=== PATIENT | female | born 1990 | race Caucasian/White ===

== ENCOUNTER 2025-02-28 09:23 | Inpatient (IN) | payer MEDICAID, SELFPAY ==
[2025-02-28] VITALS (50 sets, daily range): BP systolic 113–194; BP diastolic 64–94; PULSE 73–109; RESP 14–22; TEMP 36.3–37.1; O2SAT 94–100; BMI 34.8
[2025-02-28] MEDS: Lactated Ringers 1,000 ML 50 ML IV (09:15)
[2025-02-28] MEDS: Magnesium Sulfate 4gm/100mL 4 GM/100 ML IV.SOLN. IV (09:35)
[2025-02-28] MEDS: Acetaminophen 500 MG Tablet 1000 MG PO ×3 (09:56→22:02)
[2025-02-28 09:57] LABS: Absolute Lymphocyte Count 1.02 X10^3/uL (0.83-4.51); Absolute Neutrophil Count 10.1 X10^3/uL (2.0-7.7); Basophil# 0.02 X10^3/uL; Basophil% 0.2 % (0-1); Eosinophil# 0.01 X10^3/uL; Eosinophils% 0.1 % (0-5); Hematocrit 36.6 % (37-47); Hemoglobin 11.8 g/dL (12.0-15.0); Lymphocyte # 1.02 X10^3/ul (0.83-4.51); Lymphocyte % 8.5 % (19-41); Mean Corp Hgb Conc 32.2 g/dL (32-36); Mean Corpuscular Hgb 24.7 pg (27.0-32.0); Mean Corpuscular Volume 76.7 fL (81-99); Monocyte# 0.76 X10^3/uL; Monocyte% 6.3 % (0-10); NRBC Flagged by Analyzer 0 % (0-5); Neutrophil # 10.13 X10^3/uL (2.7-7.7); Neutrophil % 84.2 % (47-70); Platelet Count 192 K/mm3 (150-450); RBC Distribution Width SD 38.9 fl (35.1-43.9); Red Blood Count 4.77 M/mm3 (4.2-5.4)
[2025-02-28] MEDS: Magnesium Sulfate 20 GM/500 ML BAG IV ×2 (09:57→18:56)
[2025-02-28 10:27] LABS: AST(SGOT) 103 U/L (<=31); Uric Acid 5.9 mg/dL (2.6-6.0)
[2025-02-28 10:34] LABS: Alanine Aminotransfer ALT/SGPT 70 U/L (<=34); Creatinine, Serum 0.77 mg/dL (0.70-1.20); EST Glomerular Filtration Rate 104 (>60); Estimated Creatinine Clearance 122.66 ml/min (50-250); Syphilis Antibodies Nonreactive (Nonreactive)
[2025-02-28 10:41] LABS: Protein:Creat Ratio 1043 mg/g CRE (0-200)
[2025-02-28] MEDS: Lactated Ringers 1,000 ML 150 ML IV (11:00)
[2025-02-28 11:05] LABS: Amphetamine Urine NEGATIVE (<1000 ng/mL); Barbiturate Urine NEGATIVE (< 200 ng/mL); Benzodiazepine Urine NEGATIVE (< 200 ng/mL); Buprenorphine Urine NEGATIVE (< 200 ng/mL); Cocaine Urine NEGATIVE (< 300 ng/mL); Fentanyl, Urine NEGATIVE; Methadone Urine NEGATIVE (< 300 ng/mL); Opiates Urine NEGATIVE (< 300 ng/mL); Oxycodone, Urine NEGATIVE (< 100 ng/mL); PCP Urine NEGATIVE (< 25 ng/mL); THC Urine NEGATIVE (< 50 ng/mL)
[2025-02-28] MEDS: Sodium Citrate/Citric Acid 30 ML UDC PO (11:11)
--- NOTE | 2025-02-28 11:17 | PCM.HP.OB ---
HPI - General General Date of Admission: 02/28/25 Date of Service: 02/28/25 HPI Narrative JENI PINEDA, is a 34 F who presents with contractions. Maternal Data Information ALONDRA Calculator Estimated Delivery Date Method Current WG Current Estimate 03/29/25 Manual 35w 6d PFSH [facility] Medical History Headache Chronic hypertension Home Medications ?Medication ?Instructions ?Recorded ?Last Taken ?Type aspirin 81 mg chewable tablet 1 tab PO DAILY 02/28/25 02/26/25 08:00 History (Aspirin Childrens) famotidine 20 mg tablet (Acid 20 mg PO DAILY 02/28/25 02/24/25 08:00 History Controller) vitamins-iron fumarate 65 1 tab PO DAILY 02/28/25 02/26/25 08:00 History mg iron-folic acid 1 mg tablet (Mynatal Plus) Allergy/AdvReac Type Severity Reaction Status Date / Time No Known Allergies Allergy Verified 02/28/25 08:52 Surgical History History of gynecologic surgery Social History Smoking Status: Never smoker History Elective abortions Hx Para 1 Spontaneous abortions Hx # Term Pregnancies Ectopic pregnancies Hx # Pregnancies Multiple births # of living children Vital Signs Vital Signs Vital Signs: 02/28/25 08:35 02/28/25 08:35 02/28/25 08:35 Temperature Temperature Source Temporal Pulse Rate 98 Respiratory Rate 20 H Respiratory Effort Respiratory Depth Respiratory Pattern Blood Pressure BP Systolic BP Diastolic Pulse Ox 02/28/25 08:35 02/28/25 08:35 02/28/25 08:41 Temperature 97.7 F L Temperature Source Pulse Rate 103 H Respiratory Rate Respiratory Effort Respiratory Depth Respiratory Pattern Blood Pressure BP Systolic BP Diastolic Pulse Ox 97 02/28/25 08:41 02/28/25 08:57 02/28/25 08:57 Temperature Temperature Source Pulse Rate 98 Respiratory Rate Respiratory Effort Respiratory Depth Respiratory Pattern Blood Pressure 191/94 H BP Systolic 191 BP Diastolic 94 Pulse Ox 97 02/28/25 08:58 02/28/25 08:58 02/28/25 09:14 Temperature Temperature Source Pulse Rate 109 H Respiratory Rate Respiratory Effort Respiratory Depth Respiratory Pattern Blood Pressure 168/76 H 184/90 H BP Systolic 168 184 BP Diastolic 76 90 Pulse Ox 02/28/25 09:14 02/28/25 09:29 02/28/25 09:29 Temperature Temperature Source Pulse Rate 101 H 97 Respiratory Rate Respiratory Effort Respiratory Depth Respiratory Pattern Blood Pressure 194/94 H BP Systolic 194 BP Diastolic 94 Pulse Ox 02/28/25 09:35 02/28/25 09:35 02/28/25 09:35 Temperature Temperature Source Pulse Rate 96 Respiratory Rate Respiratory Effort Normal Respiratory Depth Normal Respiratory Pattern Normal Blood Pressure BP Systolic BP Diastolic Pulse Ox 97 02/28/25 09:40 02/28/25 09:40 02/28/25 09:44 Temperature Temperature Source Pulse Rate 98 Respiratory Rate Respiratory Effort Respiratory Depth Respiratory Pattern Blood Pressure 161/74 H BP Systolic 161 BP Diastolic 74 Pulse Ox 97 02/28/25 09:44 02/28/25 09:45 02/28/25 09:45 Temperature Temperature Source Pulse Rate 93 100 Respiratory Rate Respiratory Effort Respiratory Depth Respiratory Pattern Blood Pressure BP Systolic BP Diastolic Pulse Ox 97 02/28/25 09:50 02/28/25 09:50 02/28/25 09:52 Temperature Temperature Source Pulse Rate 102 H 94 Respiratory Rate Respiratory Effort Respiratory Depth Respiratory Pattern Blood Pressure BP Systolic BP Diastolic Pulse Ox 98 02/28/25 09:52 02/28/25 09:54 02/28/25 09:54 Temperature Temperature Source Pulse Rate 91 Respiratory Rate Respiratory Effort Respiratory Depth Respiratory Pattern Blood Pressure 159/76 H BP Systolic 159 BP Diastolic 76 Pulse Ox 94 02/28/25 10:01 02/28/25 10:01 02/28/25 10:13 Temperature Temperature Source Pulse Rate 95 Respiratory Rate Respiratory Effort Respiratory Depth Respiratory Pattern Blood Pressure 130/68 H BP Systolic 130 BP Diastolic 68 Pulse Ox 98 02/28/25 10:13 02/28/25 10:30 02/28/25 10:30 Temperature Temperature Source Pulse Rate 88 86 Respiratory Rate Respiratory Effort Respiratory Depth Respiratory Pattern Blood Pressure 154/76 H BP Systolic 154 BP Diastolic 76 Pulse Ox 02/28/25 10:45 02/28/25 10:45 02/28/25 10:59 Temperature Temperature Source Pulse Rate 89 Respiratory Rate Respiratory Effort Respiratory Depth Respiratory Pattern Blood Pressure 151/67 H 150/69 H BP Systolic 151 150 BP Diastolic 67 69 Pulse Ox 02/28/25 10:59 02/28/25 11:05 Temperature 97.9 F Temperature Source Temporal Pulse Rate 86 Respiratory Rate 18 Respiratory Effort Respiratory Depth Respiratory Pattern Blood Pressure BP Systolic BP Diastolic Pulse Ox Weight Weight: 216 lb Body Mass Index (BMI) 34.8 Labs Labs Labs: Blood Type O POSITIVE Antibody Screen NEGATIVE Hct 36.6 % (37-47) L Hgb 11.8 g/dL (12.0-15.0) L Obstetrics Ultrasound Syphilis Total Ab Nonreactive (Nonreactive) Chlamydia DNA ([facility]) Negative (Negative) N.gonorrhoeae DNA ([facility]) Negative (Negative) Assessment & Plan (1) Severe pre-eclampsia in third trimester: COMMENT: @ 35&6 (2) Dichorionic diamniotic twin : QUALIFIERS: Trimester: third trimester Qualified Code(s): O30.043 - Twin , dichorionic/diamniotic, third trimester PLAN: Plan Admit to L&D. Severe preE - s/p IV labetalol for severe range BP's. On magnesium therapy. Elevated LFT's. Will repeat later today. MOD - discussed R/B/A and will proceed with primary for twins afer shared decision making. Routine care
[2025-02-28] MEDS: Cefazolin 2 GM in Syringe IV (11:32)
--- NOTE | 2025-02-28 12:36 | EX.PCM.OBRPT ---
Maternal Data Information ALONDRA Calculator Estimated Delivery Date Method Current WG Current Estimate 03/29/25 Manual 35w 6d Operative Report (OB) Details Procedure Type: low transverse Date of Procedure: 02/28/25 Procedure Start Time: 11:46 Procedure Stop Time: 12:29 Pre-Operative Diagnosis: Multiple Gestation and Other Other Pre-Operative diagnosis: Severe preeclampsa Post-Operative Diagnosis: Same as Pre-operative diagnosis Classification: PHILL Type of Anesthesia: Spinal Antibiotic Given: Ancef 2 grams IV x1 Drain: Em to straight drain Estimated Blood Loss: 800ml Fluids Replaced: 750ml Findings Description of surgery: The patient was taken to the operating room where spinal anesthesia was placed & found to be adequate. She was prepped and draped in the dorsal supine position with a leftward tilt. A Pfannenstiel skin incision was made approximately 2 cm above the symphysis pubis and carried through to the underlying fascia with the scalpel. The fascia was incised incised in the midline and extended laterally with the Anders scissors. The rectus muscles were in the midline and the peritoneum was entered carefully and bluntly. The peritoneal incision was stretched and the bladder blade was inserted. Vesicouterine peritoneum was tented up, incised & then bladder flap created gently. The uterine incision was made in a low transverse fashion with the scalpel and extended superiorly and inferiorly with blunt dissection. Infant A's head was brought to the incision in the flexed position and delivered without difficulty. The head was gently guided to allow delivery of the anterior and posterior shoulders. The body then delivered with fundal pressure in the standard fashion. The 3VC cord was clamped and cut in slightly delayed fashion. The infant was handed off to the waiting pediatric cardiologist. Baby B's head palpated and guided to uterine incision with fundal pressure. head was in the flexed position and delivered without difficulty. The head was gently guided to allow delivery of the anterior and posterior shoulders. The body then delivered with fundal pressure in the standard fashion. The 3VC cord was clamped and cut in slightly delayed fashion. The infant was handed off to the waiting pediatric cardiologist The placenta was delivered with fundal massage and gentle traction in the standard fashion. The uterus was exteriorized and cleared of clots and debris. The uterine incision was closed with #1 Vicryl suture in a running locked fashion. Monocryl suture was used in an imbricating fashion. 1 additional figure of eight suture placed for excellent hemostasis. The incision was examined and was found to be hemostatic. The uterus was returned to the abdominal cavity. After irrigating Letty was placed over the uterine incision as some areas were denuded (but hemostatic). The rectus muscle was examined and any bleeding was Bovie cauterized. The fascia was closed with PDS suture in a running standard fashion. The subcutaneous tissue was examining and any bleeding was Bovie cauterized. The subcutaneous tissue was reapproximated with interrupted sutures. The skin was closed in a subcuticular fashion by the EMBROIDERER while I was present in the OR. The remainder of the procedure was performed by me with assistance. Surgical findings: normal maternal uterus and adnexa (known prior right salpingectomy) Presentation: Vertex Amniotic Membrane Rupture Type: Artificial Amniotic Fluid Description: Clear Placental Delivery Description: Expressed Placenta Disposition: [facility] Specimen collected: No Cord Vessel Description: 3 Vessels Cord Entanglement: Around neck x 1, loose Nuchal Cord Compression: Without compression Infant A gender: Male (2940g) (1 minute): 8 (5 minute): 9 Delayed Cord Clamping: Yes Nailing Machine Operator Automatic keno writer / runner: Yes Ammunition Storage Superintendent: Irving Gusman Tasks completed by trust administrative assistant: Opening & closing and Retracting Additional medical technician assistant?: No Complications Complications: No Baby B Information Amniotic Membrane Rupture Type: Artificial Presentation: Vertex Operative Information Mode of Delivery: Cord Vessel Description: 3 Vessels Cord Entanglement: Around neck x 1, loose Nuchal Cord Compression: Without compression B gender: Male (weight = 2430g) (1 minute): 9 (5 minute): 9 Delayed Cord Clamping: Yes
[2025-02-28] MEDS: Oxytocin 15 Units/NS 250ml 15 UNITS/250 ML IV.SOLN 83 UNITS IV (13:05)
[2025-02-28] MEDS: Ketorolac 30 MG/ML Syringe IV ×2 (13:18→18:46)
[2025-02-28] MEDS: Labetalol 200 MG Tablet PO ×2 (13:27→22:02)
[2025-02-28] MEDS: Lactated Ringers 1,000 ML 25 ML IV (15:43)
[2025-02-28 18:17] LABS: Absolute Lymphocyte Count 1.13 X10^3/uL (0.83-4.51); Absolute Neutrophil Count 8.7 X10^3/uL (2.0-7.7); Basophil# 0.02 X10^3/uL; Basophil% 0.2 % (0-1); Hematocrit 30.4 % (37-47); Hemoglobin 9.8 g/dL (12.0-15.0); Lymphocyte # 1.13 X10^3/ul (0.83-4.51); Lymphocyte % 10.7 % (19-41); Mean Corp Hgb Conc 32.2 g/dL (32-36); Mean Corpuscular Hgb 25.2 pg (27.0-32.0); Mean Corpuscular Volume 78.1 fL (81-99); Mean Platelet Vol. 11.2 fl (6.2-12.0); Monocyte# 0.68 X10^3/uL; Monocyte% 6.4 % (0-10); NRBC Flagged by Analyzer 0 % (0-5); Neutrophil # 8.72 X10^3/uL (2.7-7.7); Neutrophil % 82.2 % (47-70); Platelet Count 147 K/mm3 (150-450); RBC Distribution Width CV 14.3 % (11.6-14.6); RBC Distribution Width SD 40.2 fl (35.1-43.9); Red Blood Count 3.89 M/mm3 (4.2-5.4); White Blood Count 10.6 K/mm3 (4.4-11.0)
[2025-02-28 18:57] LABS: ALB/GLOB Ratio 1.3 RATIO (0.9-2.4); AST(SGOT) 96 U/L (<=31); Alanine Aminotransfer ALT/SGPT 65 U/L (<=34); Albumin, Serum 3.1 g/dL (3.5-5.0); Alkaline Phosphatase 93 U/L (35-104); Anion Gap 13 (5-15); BUN 11 mg/dL (4-19); BUN/Creat Ratio 14.1 RATIO (10-20); Calcium,Total 7.3 mg/dL (7.6-11.0); Chloride 99 mmol/L (98-108); Creatinine, Serum 0.79 mg/dL (0.70-1.20); EST Glomerular Filtration Rate 101 (>60); Estimated Creatinine Clearance 119.56 ml/min (50-250); Globulin 2.4 g/dL (2.2-4.2); Glucose 142 mg/dL (70-99); Protein, Total 5.5 g/dL (5.9-8.4); Sodium Level 132 mmol/L (133-145); Total Bilirubin 0.39 mg/dL (0.00-1.30)
--- NOTE | 2025-02-28 19:04 | NURSING ---
spoke with dr washington made aware of labs and low urine output orders received
[2025-02-28] MEDS: LACTATED RINGERS 500 ML 999 ML IV (19:12)
[2025-03-01] VITALS (14 sets, daily range): BP systolic 118–146; BP diastolic 70–99; PULSE 79–96; RESP 16–18; TEMP 36.2–36.7; O2SAT 71–99
[2025-03-01] MEDS: Enoxaparin 40 MG/0.4 ML Syringe SC (01:16)
[2025-03-01] MEDS: Ketorolac 30 MG/ML Syringe IV ×2 (01:16→07:11)
[2025-03-01] MEDS: Magnesium Sulfate 20 GM/500 ML BAG IV (04:24)
[2025-03-01] MEDS: Acetaminophen 500 MG Tablet 1000 MG PO ×4 (04:26→22:26)
[2025-03-01 06:32] LABS: Hematocrit 27.7 % (37-47); Hemoglobin 8.7 g/dL (12.0-15.0); Mean Corp Hgb Conc 31.4 g/dL (32-36); Mean Corpuscular Hgb 25.1 pg (27.0-32.0); Mean Corpuscular Volume 79.8 fL (81-99); Mean Platelet Vol. 11.6 fl (6.2-12.0); Platelet Count 137 K/mm3 (150-450); RBC Distribution Width CV 14.4 % (11.6-14.6); RBC Distribution Width SD 41.5 fl (35.1-43.9); Red Blood Count 3.47 M/mm3 (4.2-5.4); White Blood Count 9.2 K/mm3 (4.4-11.0)
[2025-03-01 07:26] LABS: ALB/GLOB Ratio 1.3 RATIO (0.9-2.4); AST(SGOT) 95 U/L (<=31); Alanine Aminotransfer ALT/SGPT 66 U/L (<=34); Alkaline Phosphatase 94 U/L (35-104); Anion Gap 8 (5-15); BUN 10 mg/dL (4-19); BUN/Creat Ratio 12.9 RATIO (10-20); Calcium,Total 6.4 mg/dL (7.6-11.0); Carbon Dioxide 24.2 mmol/L (21.0-32.0); Chloride 104 mmol/L (98-108); Creatinine, Serum 0.74 mg/dL (0.70-1.20); EST Glomerular Filtration Rate 110 (>60); Estimated Creatinine Clearance 127.63 ml/min (50-250); Globulin 2.3 g/dL (2.2-4.2); Glucose 128 mg/dL (70-99); Potassium 4.4 mmol/L (3.3-5.1); Protein, Total 5.4 g/dL (5.9-8.4); Sodium Level 136 mmol/L (133-145); Total Bilirubin 0.25 mg/dL (0.00-1.30)
--- NOTE | 2025-03-01 08:43 | PCM.PN.OB ---
Subjective Subjective Doing well. Ambulating and voiding without difficulty. Mild lochia. Breast feeding. No CARLIN. Magnesium still going. Objective Data Objective Data Vital Signs: Vital Signs Temp Pulse Resp BP Pulse Ox O2 Del Method 97.9 F 86 16 124/77 H 99 Room Air 03/01/25 07:15 03/01/25 08:20 03/01/25 08:20 03/01/25 08:20 03/01/25 08:20 03/01/25 08:20 Oxygen Delivery Method Room Air Weight: 97.976 kg Body Mass Index (BMI) 34.8 Intake & Output: Intake and Output for Last 24 Hours 02/27/25 02/28/25 03/01/25 23:59 23:59 23:59 Intake Total 3306.67 / 3381.67 1148.33 / 1148.33 Output Total 1380 / 1605 1500 / 1500 Balance 1926.67 / 1776.67 -351.67 / -351.67 Lab / Micro Data 03/01/25 06:15 03/01/25 06:15 Labs: Laboratory Results - last 24 hr 02/28/25 09:15: WBC 12.0 H, RBC 4.77, Hgb 11.8 L, Hct 36.6 L, MCV 76.7 L, MCH 24.7 L, MCHC 32.2, RDW Std Deviation 38.9, RDW Coeff of Leisa 14.0, Plt Count 192, MPV 12.0, Immature Gran % (Auto) 0.700, Neut % (Auto) 84.2 H, Lymph % (Auto) 8.5 L, [place] % (Auto) 6.3, Eos % (Auto) 0.1, Baso % (Auto) 0.2, Absolute Neuts (auto) 10.1 H, Absolute Lymphs (auto) 1.02, Nucleated RBC % 0, Creatinine 0.77, Estim Creat Clear Calc 122.66, Est GFR (MDRD) Non-Af 104, Uric Acid 5.9, AST 103 H, ALT 70 H, Syphilis Total Ab Nonreactive, Blood Type O POSITIVE, Antibody Screen NEGATIVE 02/28/25 09:45: U Random Total Protein 266.0 H, Urine Creatinine 255.00 H, Protein/Creatinin Ratio 1043 H 02/28/25 10:05: Urine Opiates Screen NEGATIVE, U Buprenorphine Qual NEGATIVE, Ur Oxycodone Screen NEGATIVE, Urine Methadone Screen NEGATIVE, Urine Fentanyl Screen NEGATIVE, Ur Barbiturates Screen NEGATIVE, Ur Phencyclidine Scrn NEGATIVE, Ur Amphetamines Screen NEGATIVE, U Benzodiazepines Scrn NEGATIVE, Urine Cocaine Screen NEGATIVE, U Cannabinoids Screen NEGATIVE 02/28/25 18:00: WBC 10.6, RBC 3.89 L, Hgb 9.8 L, Hct 30.4 L, MCV 78.1 L, MCH 25.2 L, MCHC 32.2, RDW Std Deviation 40.2, RDW Coeff of Leisa 14.3, Plt Count 147 L, MPV 11.2, Immature Gran % (Auto) 0.500, Neut % (Auto) 82.2 H, Lymph % (Auto) 10.7 L, [place] % (Auto) 6.4, Eos % (Auto) 0.0, Baso % (Auto) 0.2, Absolute Neuts (auto) 8.7 H, Absolute Lymphs (auto) 1.13, Nucleated RBC % 0, Sodium 132 L, Potassium 4.0, Chloride 99, Carbon Dioxide 20.0 L, Anion Gap 13, BUN 11, Creatinine 0.79, Estim Creat Clear Calc 119.56, Est GFR (MDRD) Non-Af 101, BUN/Creatinine Ratio 14.1, Glucose 142 H, Calcium 7.3 L, Total Bilirubin 0.39, AST 96 H, ALT 65 H, Alkaline Phosphatase 93, Total Protein 5.5 L, Albumin 3.1 L, Globulin 2.4, Albumin/Globulin Ratio 1.3 03/01/25 06:15: WBC 9.2, RBC 3.47 L, Hgb 8.7 L, Hct 27.7 L, MCV 79.8 L, MCH 25.1 L, MCHC 31.4 L, RDW Std Deviation 41.5, RDW Coeff of Leisa 14.4, Plt Count 137 L, MPV 11.6, Sodium 136, Potassium 4.4, Chloride 104, Carbon Dioxide 24.2, Anion Gap 8, BUN 10, Creatinine 0.74, Estim Creat Clear Calc 127.63, Est GFR (MDRD) Non-Af 110, BUN/Creatinine Ratio 12.9, Glucose 128 H, Calcium 6.4 L*, Total Bilirubin 0.25, AST 95 H, ALT 66 H, Alkaline Phosphatase 94, Total Protein 5.4 L, Albumin 3.0 L, Globulin 2.3, Albumin/Globulin Ratio 1.3 ROS Constitutional Constitutional: Denies headache(s) Cardiovascular Cardiovascular: Denies chest pain or dyspnea Gastrointestinal Gastrointestinal: Denies nausea or vomiting Genitourinary Genitourinary: Denies dysuria Physical Exam Const alert, oriented x3 and no apparent distress General Appearance: cooperative and comfortable Eyes PERRL and EOMs intact bilaterally Resp normal respiratory effort GI soft to palpation and non-tender GI Narrative: soft, moderate distention, fundus firm, appropriately tender. Abdominal bandage clean dry and intact Uterus Palpation: uterus fundus firm ( below umbilicus) Extremity normal to inspection and full ROM Neuro oriented x3 and CN's II-XII intact bilaterally Psych mental status grossly normal Assessment & Plan (1) Dichorionic diamniotic twin : QUALIFIERS: Trimester: third trimester Qualified Code(s): O30.043 - Twin , dichorionic/diamniotic, third trimester (2) Severe pre-eclampsia in third trimester: COMMENT: @ 35&6 PLAN: Magnesium until 24 hours. BPs stable (3) S/P :
[2025-03-01] MEDS: Labetalol 200 MG Tablet PO ×3 (10:18→22:26)
[2025-03-01] MEDS: Senna/Docusate Sodium 1 Tablet PO (10:18)
[2025-03-01] MEDS: Ondansetron 4 MG/2 ML Vial IV (10:32)
[2025-03-01] MEDS: 0.9% Saline Lock 10 ML Syringe IV (10:34)
--- NOTE | 2025-03-01 10:35 | NURSING ---
after administration of Labetalol, Tylenol, and Senna pt vomited within 5 minutes.
[2025-03-01] MEDS: Ibuprofen 600 MG Tablet PO ×2 (13:02→19:47)
[2025-03-02] MEDS: Enoxaparin 40 MG/0.4 ML Syringe SC (01:12)
[2025-03-02] MEDS: Ibuprofen 600 MG Tablet PO ×4 (01:12→18:41)
[2025-03-02 02:34] VITALS: BP 144/78; PULSE 73; RESP 16; TEMP 36.6
[2025-03-02] MEDS: Acetaminophen 500 MG Tablet 1000 MG PO ×4 (04:33→22:46)
[2025-03-02 08:00] VITALS: BP 150/68; PULSE 80; RESP 14; TEMP 36.1; O2SAT 97
[2025-03-02 08:05] VITALS: BP 132/71
--- NOTE | 2025-03-02 09:08 | PCM.PN.OB ---
Subjective Subjective Doing well. Ambulating and voiding without difficulty. Mild lochia. Breast feeding. Objective Data Objective Data Vital Signs: Vital Signs Temp Pulse Resp BP Pulse Ox O2 Del Method 97.0 F L 80 14 132/71 H 97 Room Air 03/02/25 08:00 03/02/25 08:00 03/02/25 08:00 03/02/25 08:05 03/02/25 08:00 03/02/25 08:00 Oxygen Delivery Method Room Air Weight: 97.976 kg Body Mass Index (BMI) 34.8 Intake & Output: Intake and Output for Last 24 Hours 02/28/25 03/01/25 03/02/25 23:59 23:59 23:59 Intake Total 3306.67 / 3381.67 2144.16 / 2144.16 Output Total 1380 / 1605 2450 / 2450 Balance 1926.67 / 1776.67 -305.84 / -305.84 Lab / Micro Data 03/01/25 06:15 03/01/25 06:15 ROS Constitutional Constitutional: Denies headache(s) Cardiovascular Cardiovascular: Denies chest pain or dyspnea Gastrointestinal Gastrointestinal: Denies nausea or vomiting Genitourinary Genitourinary: Denies dysuria Physical Exam Const alert, oriented x3 and no apparent distress General Appearance: cooperative and comfortable Eyes PERRL and EOMs intact bilaterally Resp normal respiratory effort GI soft to palpation and non-tender GI Narrative: soft, moderate distention, fundus firm, appropriately tender. Abdominal bandage clean dry and intact Uterus Palpation: uterus fundus firm ( below umbilicus) Extremity normal to inspection and full ROM Neuro oriented x3 and CN's II-XII intact bilaterally Psych mental status grossly normal Assessment & Plan (1) S/P : (2) Dichorionic diamniotic twin : QUALIFIERS: Trimester: third trimester Qualified Code(s): O30.043 - Twin , dichorionic/diamniotic, third trimester (3) Severe pre-eclampsia in third trimester: COMMENT: @ 35&6 PLAN: BP stable on labetalol PLAN: Plan Plan discharge tomorrow
[2025-03-02] MEDS: Labetalol 200 MG Tablet PO (10:07)
[2025-03-02] MEDS: 0.9% Saline Lock 10 ML Syringe IV ×2 (10:07→22:46)
[2025-03-02] MEDS: Senna/Docusate Sodium 1 Tablet PO (10:07)
[2025-03-02 13:30] VITALS: BP 134/77; PULSE 80; RESP 14; TEMP 36.1; O2SAT 96
[2025-03-02 19:50] VITALS: BP 155/76; PULSE 89; RESP 16; TEMP 36.8; O2SAT 97
[2025-03-02 22:44] VITALS: BP 142/93; PULSE 80
[2025-03-02] MEDS: Labetalol 100 MG Tablet 300 MG PO (22:45)
[2025-03-03] VITALS (12 sets, daily range): BP systolic 118–166; BP diastolic 69–95; PULSE 64–75; RESP 14–18; TEMP 36.1–36.4; O2SAT 95–99
[2025-03-03] MEDS: Ibuprofen 600 MG Tablet PO ×4 (01:02→20:01)
[2025-03-03] MEDS: Enoxaparin 40 MG/0.4 ML Syringe SC (01:02)
[2025-03-03] MEDS: Acetaminophen 500 MG Tablet 1000 MG PO ×4 (05:28→23:49)
--- NOTE | 2025-03-03 08:01 | PCM.PN.OB ---
Subjective Subjective Doing well. Ambulating and voiding without difficulty. Mild lochia. Breast feeding. Increasing labetalol to 300 mg TID Objective Data Objective Data Vital Signs: Vital Signs Temp Pulse Resp BP Pulse Ox O2 Del Method 97.4 F L 64 16 118/69 97 Room Air 03/03/25 05:28 03/03/25 05:28 03/03/25 05:28 03/03/25 05:28 03/03/25 05:28 03/03/25 05:28 Oxygen Delivery Method Room Air Weight: 97.976 kg Body Mass Index (BMI) 34.8 Intake & Output: Intake and Output for Last 24 Hours 03/01/25 03/02/25 03/03/25 23:59 23:59 23:59 Intake Total 2144.16 / 2144.16 Output Total 2450 / 2450 Balance -305.84 / -305.84 Lab / Micro Data 03/01/25 06:15 03/01/25 06:15 ROS Constitutional Constitutional: Denies headache(s) Cardiovascular Cardiovascular: Denies chest pain or dyspnea Gastrointestinal Gastrointestinal: Denies nausea or vomiting Genitourinary Genitourinary: Denies dysuria Physical Exam Const alert, oriented x3 and no apparent distress General Appearance: cooperative and comfortable Eyes PERRL and EOMs intact bilaterally Resp normal respiratory effort GI soft to palpation and non-tender Uterus Palpation: uterus fundus firm ( below umbilicus) Extremity normal to inspection and full ROM Neuro oriented x3 and CN's II-XII intact bilaterally Psych mental status grossly normal Assessment & Plan (1) S/P : (2) Dichorionic diamniotic twin : QUALIFIERS: Trimester: third trimester Qualified Code(s): O30.043 - Twin , dichorionic/diamniotic, third trimester (3) Severe pre-eclampsia in third trimester: COMMENT: @ 35&6 PLAN: BP improved on labetalol 300 mg BID
[2025-03-03] MEDS: Labetalol 100 MG Tablet 300 MG PO (08:27)
[2025-03-03] MEDS: Senna/Docusate Sodium 1 Tablet PO (08:27)
[2025-03-03] MEDS: Labetalol 200 MG Tablet 300 MG PO ×2 (13:39→22:12)
[2025-03-03] MEDS: NIFEdipine 30 MG Tablet PO (15:38)
[2025-03-04] MEDS: Enoxaparin 40 MG/0.4 ML Syringe SC (01:25)
[2025-03-04] MEDS: Ibuprofen 600 MG Tablet PO ×2 (01:25→07:25)
[2025-03-04 01:35] VITALS: BP 135/80; PULSE 74; RESP 16; TEMP 36.2; O2SAT 98
[2025-03-04] MEDS: Acetaminophen 500 MG Tablet 1000 MG PO (05:37)
[2025-03-04] MEDS: Labetalol 200 MG Tablet 300 MG PO (05:38)
[2025-03-04 06:34] VITALS: BP 140/83
--- NOTE | 2025-03-04 06:35 | PCM.PN.OB ---
Subjective Subjective Doing well. Ambulating and voiding without difficulty. Mild lochia. Breast feeding. No CARLIN no swelling. Does have a BP cuff Objective Data Objective Data Vital Signs: Vital Signs Temp Pulse Resp BP Pulse Ox O2 Del Method 97.2 F L 74 16 140/83 H 98 Room Air 03/04/25 01:35 03/04/25 01:35 03/04/25 01:35 03/04/25 06:34 03/04/25 01:35 03/04/25 01:35 Oxygen Delivery Method Room Air Weight: 97.976 kg Body Mass Index (BMI) 34.8 Lab / Micro Data 03/01/25 06:15 03/01/25 06:15 Physical Exam Const alert and no apparent distress Narrative: Fundus firm, below umbilicus. Assessment & Plan (1) S/P : (2) Dichorionic diamniotic twin : QUALIFIERS: Trimester: third trimester Qualified Code(s): O30.043 - Twin , dichorionic/diamniotic, third trimester (3) Severe pre-eclampsia in third trimester: COMMENT: @ 35&6 PLAN: Plan Labetalol 300 mg TID Procardia 30 XL
--- NOTE | 2025-03-04 06:37 | PCM.DC.SUM ---
Providers Date of Admission: 02/28/25 Date of Discharge: 03/04/25 Primary Care Physician: YUAN RIZO MD Reason For Visit: PRIMARY C SECTION Diagnosis Discharge Diagnosis (1) S/P : Status: Acute Code(s): Z98.891 - History of uterine scar from previous surgery (2) Dichorionic diamniotic twin : Status: Acute Code(s): O30.049 - Twin , dichorionic/diamniotic, unspecified trimester Qualifiers: Trimester: third trimester Qualified Code(s): O30.043 - Twin , dichorionic/diamniotic, third trimester (3) Severe pre-eclampsia in third trimester: Status: Acute Code(s): O14.13 - Severe pre-eclampsia, third trimester Plan Labetalol 300 mg TID Procardia 30 XL Medications at Discharge Home Medications famotidine 20 mg tablet (Acid Controller) 20 mg PO DAILY 02/28/25 vitamins-iron fumarate 65 mg iron-folic acid 1 mg tablet (Mynatal Plus) 1 tab PO DAILY 02/28/25 ibuprofen 600 mg tablet 600 mg PO Q6H #60 tabs 03/04/25 labetalol 200 mg tablet 300 mg (1.5 x 200 mg) PO TID #90 tabs 03/04/25 nifedipine 30 mg tablet,extended release 24 hr 30 mg PO DAILY #30 tabs 03/04/25 Hospital Course Operations section Procedures None Summary of Care Provided Minutes Spent on Discharge: 20 Hospital Course: Admitted for Severe Pre E. Primary for twin. complicated by BP management Discharge on labetalol 300 mg TID and procardia 30 XL Physical Exam Const alert General Appearance: cooperative GI GI Narrative: soft, moderate distention, fundus firm, appropriately tender. Abdominal bandage clean dry and intact Weight / BMI Weight Weight: 97.976 kg Body Mass Index (BMI) 34.8 ABG / Lab / Microbiology Data 03/01/25 06:15 03/01/25 06:15 D/C Instructions Discharge Diet: No restrictions May resume sexual activity in: 6 weeks Lifting Restrictions: 20 pounds Additional Activity Instructions: Nothing in the vagina for 4-6 weeks. You may return to work/school in 6 weeks. Call your doctor if your incision/area has: Continuous Slow Oozing, Sudden Increased Bleeding, Increased Pain/ Swelling, Increased Redness and Foul Smelling Discharge Call your doctor if you observe: Fever of 101 or Higher and Using more than 1 pad per hour (for 2 hours) Suture Line Care: Avoid Pulling/Pushing and Avoid Pinching/Bending Cleanse incision/area with: Keep Dressing Clean & Dry DC O2, CPAP, BIPAP Needs Home O2 Discharge instructions: No Please Follow Up With: Becca Mcqueen MD When: Follow up with our office in 1-2 and 6 weeks or as needed. [phone] Meaningful Use Info Meaningful Use Meaningful Use Diagnoses (Choose all that apply): None applicable Ischemic Stroke Statin Dosing Therapy Reference: STATIN DOSE THERAPY REFERENCE: * Patients > 75 years receive moderate or high dose statin therapy. * Patients 75 years or YOUNGER should receive HIGH intensity statin dose unless contraindicated. You will be required to document reason for non-treatment if statin daily dose does not meet guidelines. HIGH DOSE STATIN THERAPY DAILY Atorvastatin > than or = to 40 mg Rosuvastatin > than or = to 20 mg Amlodipine + Atorvastatin > than or = to 2.5/40 mg Ezetimibe + Simvastatin 10/80 mg Simvastatin 80mg Discharge Plan Admission Admit Date/Time: 02/28/25 09:23 Primary Reason for Your Visit: pre E Attending Provider: Floresita Tracy Primary Care Provider: YUAN RIZO Instructions Patient Instructions: Eclampsia After Childbirth, Understanding Preeclampsia Discharge Orders/Prescriptions Prescriptions: New nifedipine 30 mg Tablet Extended Release 24hr 30 mg PO DAILY Qty: 30 0RF labetalol 200 mg Tablet 300 mg PO TID Qty: 90 0RF ibuprofen 600 mg Tablet 600 mg PO Q6H Qty: 60 0RF Continued Mynatal Plus 65 mg iron- 1 mg tablet 1 tab PO DAILY famotidine [Acid Controller] 20 mg tablet 20 mg PO DAILY Discontinued aspirin [Aspirin Childrens] 81 mg tablet,chewable 1 tab PO DAILY Referrals / Follow Up: YUAN RIZO MD [Primary Care Provider] - Disposition Disposition (needs filled in before D/C Order can be placed): Home, Self Care
[2025-03-04 08:33] VITALS: BP 145/89; PULSE 78; RESP 16; TEMP 37.1; O2SAT 97
[2025-03-04] MEDS: NIFEdipine 30 MG Tablet PO (08:36)
--- NOTE | 2025-03-05 10:36 | CASEMGMT ---
Social Work Assessment Labor and Delivery Unit Patient Address: [address] [place] [address] [address] [place] [address] Phone number:[phone] Date of Referral: 02/28/25 Time of Referral:?1018 Referred By: Dr. Tracy Date of Intervention: ??03/01/25 Time of Intervention:? 1030 Reason for Referral:? other Sw completed chart review and acknowledges social work consult. Sw presented to bedside and introduced self to mother of baby (MOB- Rachel) and father of baby (FOB- Jeronimo). Sw explained reason for sw involvement and completed psychosocial assessment. History obtained from: medical records, MOB and FOB. Household composition:Currently residing in the family home is MOB, CARA, FOSamantha's two older children, Rocky (10) and Pepe (9) and HENRIK's son, Joshua (13). twins will be included in residence when ready for discharge. Parents deny any problems or issues with housing, reporting it to be safe and secure. Patient's parent/guardian status:? MOB and FOB report that they have known each other since they were little kids, and dated in middle/ high school but eventually broke up and then dated other people for 17 years. They had relationships and children with prior significant others and then got back together. baby is first baby for MOB and FOB together. No problems or concerns reported regarding domestic violence or intimate partner violence. ? Medical History: ?HENRIK is 34 year old female who is 2, para 1- now 3 following labor and delivery of twins. HENRIK received routine care during with [facility]. HENRIK presented to hospital for scheduled on 02/28/25 at 35 weeks gestation. Baby A: Katarina was born weighing 6lb 8oz and had apgars of 8 and 9 at one and five minutes of life, respectfully. Baby B: Chris, was born weighing 5lb 6oz with apgars of 8 and 9 at one and five minutes of life, respectfully. HENRIK states that she is breast feeding and twins will be followed by Dr. Bunch for pediatrics. Educational Status:? Both parents graduated from high school. Parents deny any problems or concerns with reading, learning or comprehension. 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 Infant Supplies: All necessary baby supplies obtained, parents report to having double of: car seats, safe sleep spaces, clothes, diapers and wipes. Childcare/Caregiver(s):? HENRIK states that she will be the primary caregiver to the baby's along with CARA and other family members who are able to help when necessary Transportation:?? Both parents have their drivers license and reliable means of transportation, no barriers. Programs/Agencies Involved: ???Parents are not connected to any community agencies that assist them financially as they are over income. Children Services/Legal Issues:??? No prior involvement or history with children services. NO problems or concerns at this time warranting referral to be made. Behavioral Health Issues: ??Mental Health History:??CARA states that he has never struggled with his mental health, he even states that I don't believe in that stuff. People need to toughen up and face reality. CRAA states that he recently had a friend who committed suicide, and CARA states that he was weak and was a coward. Caleb educated CARA on trauma and mental illness. Sw educated CARA on mental health and how some people experience mental health symptoms and are not able to control that. CARA states that he understands people can experience mental health/ illness, but has more respect for people when they address it and seek help. CARA states that she has not ever struggled with anxiety or depression and denies experiencing baby blues or depression/ anxiety following the delivery of her first child. ? Substance Use History:?Parents deny substance use. ? Family History:??Parents deny family history of substance use and significant mental health diagnoses. ??? Drug Screens: Maternal drug screen on day of delivery was negative for all substances. Family/Social Stressors:? Parents deny any problems, concerns or stressors at this time. Support Systems: HENRIK reports that CARA and her mom are her biggest supports. Depression/Shaken Baby/Safe Sleeping: Caleb discussed and educated parents at length regarding signs and symptoms of baby blues and depression and anxiety. Due to CARA's view on mental health, caleb emphasized that mental health does not discriminate and can impact anyone. Caleb explained to parents that HENRIK may be more at risk during this period to experience symptoms due to having multiples and navigating caring for two newborns at one time. FOB and MOB stated that they are not stressed or worried about that, and report that they have a lot of help and have been ready for the twins since they learned they were having multiples. Sw encouraged MOB to seek consult from her OBGYN if she were to struggle with her mental health at any point during this period, again emphasizing that baby blues are common to moms and it would be normal for her to experience a shift in her mental health. Parents talked openly about coping skills that MOB utilizes that she would be able to use to help her if she were to struggle, which again- they state they do not anticipate that happening. Sw educated parents on shaken baby prevention and ABCs of safe sleep. Parents express understanding. ASSESSMENT:?MOB laying comfortably in bed and FOB laying on couch, both were receptive to meeting with sw and completing psychosocial assessment. Twins were laying at first in same bassinet- to which sw educated parents that twins need to be from one another and in separate sleep spaces. Parents express understanding, and when one of the baby's started to cry, MOB asked FOB to pick him up and hand him to her. MOB was observed holding baby and caring for him appropriately. [place] calmed while being held by MOB, and then remained calm when MOB handed him off to FOB so she could use the restroom. Parents appear to be calm and state to have all necessary supplies needed for babys. FOB expressed his beliefs on mental health and mental health. FOB talkative about their family and living on a farm. Throughout conversation MOB reported to feeling nauseous and closed her eye, and then looked tired. FOB talked more than MOB and was engaging with sw. PLAN:?? No other services requested or indicated. MOB and baby to be discharged when medically ready. Parents were provided literature regarding: signs and symptoms of baby blues and mood and anxiety disorders, Help Me Grow, shaken baby prevention, ABCs of safe sleep and a list of county resources that are available for them should any needs present themselves. Naa Hendricks, FINANCIAL PLANNING ADVISOR, SHEETER WAXER OPERATOR
== END 2025-03-04 09:00 | disposition home or self-care (01) | DRG 540 ==
LOC: WPOUT 09:26 → WP 09:42
PROVIDERS: Nurse Anesthetist, Certified Registered; Admitting Provider Obstetrics & Gynecology; PCP Family Medicine; Referring Provider Obstetrics & Gynecology; Visit Provider Obstetrics & Gynecology
DX: O14.14 Severe pre-eclampsia complicating childbirth (principal); Z37.2 Twins, both liveborn; O30.043 Twin pregnancy, dichorionic/diamniotic, third trimester; O69.81X1 Labor and delivery complicated by cord around neck, without compression, fetus 1; O69.81X2 Labor and delivery complicated by cord around neck, without compression, fetus 2; Z3A.35 35 weeks gestation of pregnancy; Z79.82 Long term (current) use of aspirin
CPT/HCPCS: 59025; 59050; 80053; 80307; 82565; 82570; 84156; 84450; 84460; 84550; 85025; 85027; 86780; 86850; 86900; 86901; 99221; A4216; G0378; J2405

== ENCOUNTER 2025-04-06 09:09 | Observation (INO) | payer MEDICAID, SELFPAY ==
[2025-04-06] VITALS (19 sets, daily range): BP systolic 112–136; BP diastolic 58–77; PULSE 94–118; RESP 13–16; TEMP 37.1–37.9; O2SAT 95–100; BMI 30.5
--- NOTE | 2025-04-06 04:00 | NURSING ---
dr mitchell on nursing unit to receive update on pt arrival to triage unit. jaun yang (delivered 02/28/25 di di twins severe pre-e on mag) came in c/o CARLIN with pain 4/10, abdominal pain 8/10, dizziness, nausea, chills and an elevated BP at home, despite taking her scheduled BP meds. pt currently on 300 mg TID labetalol and 60 mg procardia. this RN performed assessment and no clonus, epigastric pain, reflexes WNL. vitals reviewed with provider. BP 136/68, HR 114, temporal temp 100.2 followed by oral of 98.2. dr mitchell states to obtain CBC and CMP along with UA. will update her with labwork when they result. RN to assess incision for any infection signs or symptoms. no further needs. battery charger updated on plan of care.
--- NOTE | 2025-04-06 04:13 | NURSING ---
dr mitchell states if this next serial BP WNL, RN can stop obtaining serial BPs at this time. next BP to be taken around 0415.
[2025-04-06] MEDS: 0.9% Saline Lock 10 ML Syringe IV (04:25)
[2025-04-06 04:46] LABS: Red Blood Cells-Urine 0 SEEN /hpf (0-5); White Blood Cells 0 SEEN /hpf (0-5)
[2025-04-06 04:47] LABS: Color, Urine Straw (Yellow); Glucose, Dipstick Normal (Normal); Ketone-Dipstick Negative (Negative); Leukocyte Esterase-Dipstick Negative /ul (Negative); Nitrite-Dipstick Negative (Negative); Occult Blood-Urine 10 /ul (Negative); Protein-Dipstick 15 mg/dl (Negative); Urine Bilirubin Dipstick Negative (Negative); Urine Clarity Clear (Clear); Urine Urobilinogen Normal (Normal)
[2025-04-06 04:49] LABS: Absolute Lymphocyte Count 0.79 X10^3/uL (0.83-4.51); Absolute Neutrophil Count 11.1 X10^3/uL (2.0-7.7); Basophil# 0.02 X10^3/uL; Basophil% 0.2 % (0-1); Eosinophil# 0.02 X10^3/uL; Eosinophils% 0.2 % (0-5); Hematocrit 38.6 % (37-47); Hemoglobin 12.4 g/dL (12.0-15.0); Lymphocyte # 0.79 X10^3/ul (0.83-4.51); Lymphocyte % 6.2 % (19-41); Mean Corp Hgb Conc 32.1 g/dL (32-36); Mean Corpuscular Hgb 24.7 pg (27.0-32.0); Mean Corpuscular Volume 76.9 fL (81-99); Mean Platelet Vol. 10.3 fl (6.2-12.0); Monocyte# 0.82 X10^3/uL; Monocyte% 6.4 % (0-10); NRBC Flagged by Analyzer 0 % (0-5); Neutrophil # 11.09 X10^3/uL (2.7-7.7); Neutrophil % 86.7 % (47-70); Platelet Count 234 K/mm3 (150-450); RBC Distribution Width CV 16.4 % (11.6-14.6); RBC Distribution Width SD 45.7 fl (35.1-43.9); Red Blood Count 5.02 M/mm3 (4.2-5.4); White Blood Count 12.8 K/mm3 (4.4-11.0)
--- NOTE | 2025-04-06 04:53 | NURSING ---
this RN spoke with dr mitchell. CBC results reviewed. elevated WBC 12.8, suspected infection. dr mitchell states to wait until urine results to take next steps. hot car charger aware of plan of care, candy CASTRO.
[2025-04-06 05:03] LABS: Amorphous Sediment 1+; Bacteria 1+ /hpf (None Seen); Mucous, Urine 1+ /hpf (<or=2+); Squamous Epithelial Cells - UA 5-10 SEEN /hpf (5-10)
[2025-04-06 05:17] LABS: ALB/GLOB Ratio 1.6 RATIO (0.9-2.4); AST(SGOT) 21 U/L (<=31); Alanine Aminotransfer ALT/SGPT 14 U/L (<=34); Albumin, Serum 4.7 g/dL (3.5-5.0); Alkaline Phosphatase 114 U/L (35-104); Anion Gap 14 (5-15); BUN 12 mg/dL (4-19); BUN/Creat Ratio 16.9 RATIO (10-20); Calcium,Total 9.9 mg/dL (7.6-11.0); Carbon Dioxide 22.1 mmol/L (21.0-32.0); Chloride 101 mmol/L (98-108); Creatinine, Serum 0.73 mg/dL (0.70-1.20); EST Glomerular Filtration Rate 112 (>60); Estimated Creatinine Clearance 121.03 ml/min (50-250); Glucose 135 mg/dL (70-99); Protein, Total 7.6 g/dL (5.9-8.4); Sodium Level 137 mmol/L (133-145); Total Bilirubin 0.66 mg/dL (0.00-1.30)
--- NOTE | 2025-04-06 05:20 | NURSING ---
dr mitchell updated on urine labwork. pt still writhing in pain 06/30. JG states to order CT of abdomen. shear tender aware of plan of care.
--- NOTE | 2025-04-06 05:23 | CT_ITS ---
PROCEDURE: ABDOMEN/PELVIS W IV CONT ONLY 04/06/2025 REASON FOR EXAM: ABDOMINAL PAIN 5 WEEKS POST OP TECHNIQUE: Abdomen and pelvis CT with intravenous contrast. Coronal and Sagittal reconstruction series were provided. PATIENT PREPARATION: Per protocol ORAL CONTRAST TYPE: None. CONTRAST: 97 cc Isovue 370 IV One or more dose reduction techniques were used (e.g., Automated exposure control, adjustment of the mA and/or kV according to patient size, use of iterative reconstruction technique. RADIATION DOSE SUMMARY: CTDlvol: 18.58 mGy DLP: 942.68 mGycm COMPARISON: None available FINDINGS: The lung bases are clear. The liver, gallbladder, adrenal glands, kidneys, pancreas and spleen appear within limits. Very small left renal cyst. Abdominal aorta appears within limits. No adenopathy. No bowel dilation or free air. Enlarged and inflamed appearing appendix measuring 1.1 cm axial 80 and coronal 42 with adjacent fat stranding and edema. No abscess identified at this time. Very small right pelvic free fluid. The ovaries and bladder appear within limits. The uterus appears within post gravid limits. incision subcutaneous soft tissues appear within limits. The visualized osseous structures appear within limits. CT/Abdomen/Pelvis W IV Cont ONLY IMPRESSION: Enlarged and inflamed appearing appendix measuring 1.1 cm axial 80 and coronal 42 with adjacent fat stranding and edema consistent with acute appendicitis. No abscess identified at this time. Very small right pelvic free fluid. Findings relayed by myself by phone to OB MATTHEW Womack at 6:17 a.m. 04/06/2025 Reading Location: [id number]
--- NOTE | 2025-04-06 05:27 | OB.TRI.HP_ITS ---
HPI - General General Date of Admission: 04/06/25 Date of Service: 04/06/25 Chief Complaint: pain and high BP HPI Narrative JENI PINEDA, is a 34 F who presents with abdominal pain 06/30. Progressively worsening from last night. She is 5 week post . Has been taking Procardia and labetalol for Elevated BP . Mild headache. BP at home has been up and down tonight. She did take her medications. Still breast feeding. She was feeling lightheaded. Did eat dinner last night but is nauseated. Vomiting x 1. No breast feeding concerns or s/s of mastitis. No increased bleeding. Incision is intact. Elevated WBC. UA normal. CT of abdomen and pelvis shows acute appendicitis. No abscess or rupture. General surgery on-call paged. Dr Lilly. Denisse ordered. Plan for surgery today. Maternal Data Information ALONDRA Calculator Estimated Delivery Date Method Current WG Current Estimate 03/29/25 Manual 41w 1d PFSH [facility] Medical History Headache Chronic hypertension Home Medications ?Medication ?Instructions ?Recorded ?Last Taken ?Type vitamins-iron fumarate 65 1 tab PO DAILY 02/1904/05/25 23:00 History mg iron-folic acid 1 mg tablet (Mynatal Plus) ibuprofen 600 mg tablet 600 mg PO Q6H #60 tabs 03/04 Unknown Rx labetalol 200 mg tablet 300 mg (1.5 x 200 mg) PO TID #90 03/04/25 04/05/25 23:00 Rx tabs nifedipine 30 mg tablet,extended 60 mg PO DAILY 04/05/25 23:00 History release 24 hr Allergy/AdvReac Type Severity Reaction Status Date / Time No Known Allergies Allergy Verified 04/06/25 03:40 Surgical History History of gynecologic surgery Social History Smoking Status: Never smoker History Elective abortions Hx Para 1 Spontaneous abortions Hx # Term Pregnancies Ectopic pregnancies Hx # Pregnancies Multiple births # of living children ROS Constitutional Constitutional: Reports body ache(s) and chills Cardiovascular Cardiovascular: Denies chest pain or leg edema Respiratory/Chest Respiratory/Chest: Denies cough Gastrointestinal Gastrointestinal: Reports nausea; Denies vomiting Psychiatric Psychiatric: Denies none Physical Exam Const alert and oriented x3 General Appearance: cooperative and comfortable Resp normal respiratory effort Cardio regular rate GI Palpation: tender Extremity normal to inspection and full ROM Neuro oriented x3 Psych mental status grossly normal Assessment & Plan (1) Acute appendicitis: QUALIFIERS: Acute appendicitis type: with localized peritonitis Appendicitis abscess presence: without abscess Appendicitis gangrene presence: without gangrene Appendicitis perforation presence: without perforation Qualified Code(s): K35.30 - Acute appendicitis with localized peritonitis, without perforation or gangrene PLAN: Plan Spoke with Dr Lilly. Pt is NPO. Zosyn ordered
--- NOTE | 2025-04-06 06:55 | NURSING ---
dr mitchell reviewed CT. consult being placed to general surgery and pre op ATBs ordered, as well. pt has acute appendicitis and going to have laparoscopic procedure. surgery will contact unit when pt able to come to general OR. propellant charge zone assembler updated on plan of care. dr mitchell (provider) in room to speak to pt and support person to answer any and all questions. no further needs noted at this time.
--- NOTE | 2025-04-06 07:04 | HP.PCM.SX_ITS ---
HPI - General General Date of Service: 04/06/25 HPI Narrative JENI PINEDA, is a 34 F who presents due to abdominal pain and hypertension to women's triage as she is status post with twins about [address] abdomen pelvis showed acute appendicitis patient white blood count is 12. Patient states pain started at 5 PM yesterday got worse about 11 PM. Patient last ate yesterday. Patient is receiving Zosyn 3.375 g IV x 1. PFSH Medical History Headache Chronic hypertension Home Medications ?Medication ?Instructions ?Recorded ?Last Taken ?Type vitamins-iron fumarate 65 1 tab PO DAILY 02/1904/05/25 23:00 History mg iron-folic acid 1 mg tablet (Mynatal Plus) ibuprofen 600 mg tablet 600 mg PO Q6H #60 tabs 03/04 Unknown Rx labetalol 200 mg tablet 300 mg (1.5 x 200 mg) PO TID #90 03/04/25 04/05/25 23:00 Rx tabs nifedipine 30 mg tablet,extended 60 mg PO DAILY 04/05/25 23:00 History release 24 hr Allergy/AdvReac Type Severity Reaction Status Date / Time No Known Allergies Allergy Verified 04/06/25 03:40 Surgical History History of gynecologic surgery Social History Smoking Status: Never smoker Vital Signs Vital Signs Vital Signs: 04/06/25 03:45 04/06/25 03:45 04/06/25 03:45 Temperature 100.2 F H Temperature Source Temporal Pulse Rate 114 H 115 H Respiratory Rate 16 Blood Pressure 136/68 H 136/68 H Blood Pressure Mean 90 BP Systolic 136 BP Diastolic 68 Blood Pressure Source Monitor Blood Pressure Position Semi-Fowlers Blood Pressure Location Right Arm Pulse Ox 100 Oxygen Delivery Method Room Air 04/06/25 03:45 04/06/25 03:45 04/06/25 04:00 Temperature Temperature Source Temporal Pulse Rate 114 H Respiratory Rate Blood Pressure 112/58 L Blood Pressure Mean 76 BP Systolic BP Diastolic Blood Pressure Source Monitor Blood Pressure Position Semi-Fowlers Blood Pressure Location Right Arm Pulse Ox 100 Oxygen Delivery Method 04/06/25 04:00 04/06/25 04:00 04/06/25 04:15 Temperature Temperature Source Pulse Rate 114 H 112 H Respiratory Rate 16 Blood Pressure 112/58 L 123/58 H Blood Pressure Mean 79 BP Systolic 112 BP Diastolic 58 Blood Pressure Source Monitor Blood Pressure Position Semi-Fowlers Blood Pressure Location Right Arm Pulse Ox Oxygen Delivery Method 04/06/25 04:15 04/06/25 04:15 Temperature Temperature Source Pulse Rate 112 H Respiratory Rate Blood Pressure 123/58 H Blood Pressure Mean BP Systolic 123 BP Diastolic 58 Blood Pressure Source Blood Pressure Position Blood Pressure Location Pulse Ox Oxygen Delivery Method Weight Weight: 189 lb 6.4 oz Body Mass Index (BMI) 30.5 Physical Exam Const alert, oriented x3 and no apparent distress HEENT normocephalic and head/scalp atraumatic Resp normal respiratory effort Cardio regular rate GI soft to palpation; Negative for non-distended Palpation: tender other (Mid abdomen, no rebound); Negative for guarding Extremity no clubbing, cyanosis or edema Neuro CN's II-XII intact bilaterally Psych mental status grossly normal Results Lab / Micro Data 04/06/25 04:25 04/06/25 04:25 Labs: Laboratory Results - last 24 hr 04/06/25 04:25: WBC 12.8 H, RBC 5.02, Hgb 12.4, Hct 38.6, MCV 76.9 L, MCH 24.7 L , MCHC 32.1, RDW Std Deviation 45.7 H, RDW Coeff of Leisa 16.4 H, Plt Count 234, MPV 10.3, Immature Gran % (Auto) 0.300, Neut % (Auto) 86.7 H, Lymph % (Auto) 6.2 L, Forrest % (Auto) 6.4, Eos % (Auto) 0.2, Baso % (Auto) 0.2, Absolute Neuts (auto) 11.1 H, Absolute Lymphs (auto) 0.79 L, Nucleated RBC % 0, Sodium 137, Potassium 4.0, Chloride 101, Carbon Dioxide 22.1, Anion Gap 14, BUN 12, Creatinine 0.73, Estim Creat Clear Calc 121.03, Est GFR (MDRD) Non-Af 112, BUN/Creatinine Ratio 16.9, Glucose 135 H, Calcium 9.9, Total Bilirubin 0.66, AST 21, ALT 14, Alkaline Phosphatase 114 H, Total Protein 7.6, Albumin 4.7, Globulin 3.0, Albumin/Globulin Ratio 1.6, Urine Color Straw, Urine Clarity Clear, Urine pH 7.0, Ur Specific [place] 1.010, Urine Protein 15 H, Urine Glucose (UA) Normal, Urine Ketones Negative, Urine Occult Blood 10 H, Urine Nitrite Negative, Urine Bilirubin Negative, Urine Urobilinogen Normal, Ur Leukocyte Esterase Negative, Urine RBC 0 SEEN, Urine WBC 0 SEEN, Ur Squamous Epith Cells 5-10 SEEN, Amorphous Sediment 1+, Urine Bacteria 1+, Urine Mucus 1+ Imaging Radiology Impression Abdomen/Pelvis CT 04/06/25 05:23 IMPRESSION: Enlarged and inflamed appearing appendix measuring 1.1 cm axial 80 and coronal 42 with adjacent fat stranding and edema consistent with acute appendicitis. No abscess identified at this time. Very small right pelvic free fluid. Findings relayed by myself by phone to OB MATTHEW Womack at 6:17 a.m. 04/06/2025 Reading Location: [facility] Assessment & Plan Assessment/Plan (1) Acute appendicitis: QUALIFIERS: Acute appendicitis type: with localized peritonitis A ppendicitis abscess presence: without abscess Appendicitis gangrene presence: w ithout gangrene Appendicitis perforation presence: without perforation Q ualified Code(s): K35.30 - Acute appendicitis with localized peritonitis, without perforation or gangrene (2) S/P : PLAN: Plan 1. Discussed procedure laparoscopic appendectomy, possible open along with the risk but not limited to bleeding, infection/abscess, injury to another organ (small bowel, colon, etc.), adhesion, hernia at incision sites, and anesthesia. Patient or no further questions time. Adriane Lilly M.D. Pager: [phone] [facility] [address] [place] [address], [address] [place] [id number] Office: [phone]
--- NOTE | 2025-04-06 07:16 | NURSING ---
general surgery called unit. surgery scheduled for 829. dr paula silverio. RN informed pt of plan of care.
--- NOTE | 2025-04-06 07:35 | NURSING ---
RN in room to update pt and support person. last preop vitals obtained. ATB in room, ready to be hung prior to surgery.
--- NOTE | 2025-04-06 07:36 | NURSING ---
report given to olive thao RN. that RN to assume care of pt at this time.
[2025-04-06] MEDS: TAZOBACTAM IV (08:17)
[2025-04-06] MEDS: NORMAL SALINE 0.9% IV (08:17)
[2025-04-06] MEDS: PIPERACIL IV (08:17)
--- NOTE | 2025-04-06 08:37 | PCM.PRE.AN2 ---
ASA Classification* ASA Classification ASA Classification: 2 and E Assessment & Plan Anesthesia* Anesthesia Assessment Anesthesia Assessment: Discussed sedation and/or anesthesia options, risks, benefits, and alternatives with patient/parents/legal guardian/POA. Questions invited. The patient/parents/legal guardian/POA seems to understand and agrees to proceed with anesthesia plan. Reviewed the physical assessment, medical history, allergy history and patient home medications list prior to surgery/procedure/anesthetic and documented any changes. Performed airway and anesthesia risk assessments. Anesthesia Type Anesthesia Type: General Anesthesia Focused Assessment* Temperature: 99.4 F Pulse Rate: 107 Blood Pressure: 123/69 Respiratory Rate: 16 Pulse Ox: 98 Airway Assessment Mouth opens: >3 cm Mallampati Score: II Focused Labs Anesthesia Preop lab: CBC WBC 12.8 K/mm3 (4.4-11.0) H 04/06/25 04:25 04/06/25 RBC 5.02 M/mm3 (4.2-5.4) 04/06/25 04:25 04/06/25 Hgb 12.4 g/dL (12.0-15.0) 04/06/25 04:25 04/06/25 Hct 38.6 % (37-47) 04/06/25 04:25 04/06/25 Plt Count 234 K/mm3 (150-450) 04/06/25 04:25 04/06/25 CHEMISTRY Potassium 4.0 mmol/L (3.3-5.1) 04/06/25 04:25 04/06/25 Sodium 137 mmol/L (133-145) 04/06/25 04:25 04/06/25 BUN 12 mg/dL (4-19) 04/06/25 04:25 04/06/25 Creatinine 0.73 mg/dL (0.70-1.20) 04/06/25 04:25 04/06/25 Glucose 135 mg/dL (70-99) H 04/06/25 04:25 04/06/25 COAG HCG, Quant 94251 mIU/mL (<9 non-preg) H 12/03/13 18:18 12/03/13 Pre-Assessment Diagnosis/Proposed Procedure Planned Operative Procedure(s): lap appy Anesthesia History Anesthesia History - investment specialist: Anesthesia History - investment specialist Hx Hospitalization No 12/04/13 02:27 Any Problems With Anesthesia Cholinesterase deficiency You/Your Family Experience fever (hyperthermia) with Relationship Recent Exposure to Contagious No 12/04/13 02:27 Disease Does patient have nerve stimulator Patient instructed to have device shut off --Does patient have Pacemaker No 04/06/25 08:21 or ICD? When Was Last Pacemaker Check QUESTION #4 FULL TEXT: You/Your Family Experience fever (hyperthermia) with Anesthesia Last Oral Intake Last Oral intake: Last Oral Intake NPO since 00:00 04/06/25 08:21 Meds taken in AM with sips of No 04/06/25 08:21 water? Meds patient instructed to take am of surgery PONV PONV - investment specialist: PONV - investment specialist Female HX of Motion Sickness HX of N/V After Surgery Non-Smoker Duration of Surgery greater than 60 minutes Number of Risk Factors PONV Score Height & Weight Height & Weight: Anesthesia: Height & Weight Height 5 ft 6 in 04/06/25 08:21 Weight: 85.9 kg 04/06/25 08:21 Body Mass Index (BMI) 30.5 04/06/25 08:21 Respiratory Assessment Respiratory Assessment - investment specialist: Respiratory Tract Infection Hx - investment specialist Hx Respiratory Tract Infection No 12/04/13 02:27 STOP Sleep Apnea STOP Sleep Apnea - investment specialist: STOP Sleep Apnea - investment specialist Hx Hypertension No 12/04/13 02:27 Hx Sleep Apnea No 12/04/13 02:27 CPAP No 12/04/13 02:27 BIPAP No 12/04/13 02:27 Do you snore loudly (louder than talking or can be heard Do you often feel tired/ fatigued/ sleepy during daytime? Has anyone observed you stop breathing during sleep? STOP Results QUESTION #5 FULL TEXT : Do you snore loudly (louder than talking or can be heard through closed doors)? 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 Specify any problems Hx of Preganancy in last 3 Months Nurse Filling Out Transfusion & Questions: Date: Time: Patient unable to answer at this time (ie. confused, unrespo /Reproduction History /Reproductive History - investment specialist: /Reproductive Hx- investment specialist Hx Now Gestational Age (in weeks): EDC: Hx Hx Para Hx Section SAB Yes 02/28/25 10:18 Active Medications Active Medications: Current Medications Generic Name Dose Route Start Last Admin Trade Name Freq PRN Reason Stop Dose Admin Sodium Chloride 10 ml 04/06/25 04:32 04/06/25 04:25 0.9% Saline Lock 10 Ml Syringe IV 10 ml PRN PRN Administration flush IV PFSH Medical History Headache Chronic hypertension Home Medications ?Medication ?Instructions ?Recorded ?Last Taken ?Type vitamins-iron fumarate 65 1 tab PO DAILY 02/28/25 04/05/25 23:00 History mg iron-folic acid 1 mg tablet (Mynatal Plus) ibuprofen 600 mg tablet 600 mg PO Q6H #60 tabs 03/04/25 Unknown Rx labetalol 200 mg tablet 300 mg (1.5 x 200 mg) PO TID #90 03/04/25 04/05/25 23:00 Rx tabs nifedipine 30 mg tablet,extended 60 mg PO DAILY 04/06/25 04/05/25 23:00 History release 24 hr Allergy/AdvReac Type Severity Reaction Status Date / Time No Known Allergies Allergy Verified 04/06/25 03:40 Surgical History History of gynecologic surgery Social History Smoking Status: Never smoker Review of Systems (Anesthesia) ROS Narrative System reviewed and no additional complaints, except as documented.
[2025-04-06] MEDS: Ondansetron 4 MG/2 ML Vial IV (09:44)
--- NOTE | 2025-04-06 10:20 | APP_PTH ---
PATIENT: JENI PINEDA LOC: [facility] U#:[id number] AGE/SX: 34/F ROOM: WP011 RE04/06/[address]: Dr. Adriane Lilly MD : 1990 BED: 1 DIS: 04/06/2025 SPEC #: [id number] RECD: 04/08/25 07:33 STATUS: TANESHA EDWARDS #: [id number] MILY: 04/06/25 10:[address]: Adriane Lilly DEPT: SURGICAL PATHOLOGY RECD BY: Cecil Carreno ENTERED: 04/08/25 08:14 SP TYPE: APPENDIX OTHR DR: YUAN RIZO MD Tissues: A - Appendix, NOS Procedures: Surgery Specimen Level III HEADER OPERATION: Laparoscopic appendectomy PRE-OP DIAGNOSIS: Acute appendicitis TISSUE SUBMITTED: A- Appendix MICROSCOPIC DIAGNOSIS A. Appendix, appendectomy: * Acute suppurative appendicitis with transmural inflammation and periappendicitis MICROSCOPIC DESCRIPTION Slides are reviewed. GROSS DESCRIPTION A. Received in formalin in a container labeled with the patient's name, date of , and appendix is a 4.7 cm in length by 1.0 cm predominantly intact appendectomy specimen with attached mesoappendix measuring up to 1.9 cm in thickness. The serosa is dominguez-brown with dense adhesions and an abundance of adherent white-griffith exudate. The stapled resection margin is inked black, and serial sections reveal a 0.1 to 0.3 cm lumen with red-brown hemorrhage. No distinct fecalith or perforation is identified. There is an average wall thickness of 0.4 cm with hemorrhagic mucosa. Manuscripts Archivist sections:A1. Resection margin, en face with cross-sectionsA2. Tip of appendix, bisected [facility] 04-08-2025 CPT:47263
[2025-04-06] MEDS: Bupiv/Epi 0.25% 30 ML Vial (10:41)
--- NOTE | 2025-04-06 11:01 | PCM.OPRPT ---
Operative Report (Standard) Operative Information Date of Procedure: 04/06/25 Pre-Operative Diagnosis: Acute appendicitis Post-Operative Diagnosis: Same Surgery/Procedure Performed: Laparoscopic appendectomy furnace unloader: No Type of Anesthesia: General/Supplemental RN Documented Start/Stop Times: Operation Date: 04/06/25 10:20 Case Time Anesthesia Start 04/06/25 09:54 Into Room 04/06/25 09:54 Procedure Start 04/06/25 10:09 Procedure End 04/06/25 10:49 Anesthesia End 04/06/25 10:54 Out of Room 04/06/25 10:54 Into Recovery 04/06/25 10:57 Procedure Start Time: 10:09 Procedure Stop Time: 10:49 Select all DRAINS/GRAFTS/IMPLANTS that apply: None Special Medications: Zosyn 3.375 g IV x 1 for acute appendicitis Estimated Blood Loss: 10 cc Specimen collected: Yes Description of specimen(s) removed: Appendix Description of surgery: Indications: 34-year-old female presented to the ER with new abdominal pain this morning. On workup she has was found to have acute appendicitis on CT and a leukocytosis of 12. [facility] as she is 5 weeks post for acute appendicitis-Zosyn 3.375 IV x 1 Description of the procedure: The patient was placed on operating table in supine position. General anesthesia was induced. A timeout was completed verifying correct patient, procedure, position and special equipment prior to beginning procedure. Abdomen was prepped and draped in usual sterile fashion. Incision was made in the natural skin line below the umbilicus with a 15 blade scalpel. The fascia was elevated and incised. Entry into the peritoneum was confirmed visually and no bowel was noted in the vicinity of the incision. The Rodriguez trocar was placed under direct vision. Abdomen insufflated with a pressure of 12-15 mmHg. Patient tolerated insertion well. The scope was inserted and the abdomen inspected. No injuries from initial trocar placement were noted. Minimal amount of fluid was seen in the right lower quadrant. An direct visualization 2 -5 mm trocars were placed one above the symphysis pubis and below the hairline and one in the left lower quadrant lateral to the rectus muscle. Care is taken to avoid injury to the bladder and inferior epigastric vessels. The table was placed in Trendelenburg position with the right side elevated. The appendix was grasped with atraumatic grasper and elevated. It was noted to be inflamed. A window was developed in the mesoappendix at the point between the base of the appendix and the cecum. An endoscopic 45 mm linear cutting stapler blue load was then used to divide and staple the base of the appendix. Incisions used to divide the mesoappendix The appendix was withdrawn into the Rodriguez trocar after being placed endoscopically retrieval bag. Appendix was sent to pathology. The appendiceal stump was then irrigated and hemostasis was assured after placement of two 5 mm clips at the staple line. Fluid was suctioned no other pathology was identified. Secondary trochars were removed under direct visualization. No bleeding was noted trocar sites. The laparoscope withdrawn and the umbilical trocar removed. The abdomen was allowed to collapse. Local anesthesia of 0.25% Marcaine was used at the incision sites. The umbilical trocar site was closed with the [id number] 0 Vicryl suture. The skin was closed using sutures of 4-0 Monocryl and Steri-Strips. The patient was extubated. The patient tolerated the procedure well and was taken to the postanesthesia care unit in satisfactory condition. Surgical Findings: See operative report Complications Complications: No
--- NOTE | 2025-04-06 11:03 | PCM.POST.ANE ---
Anesthesia: Postop Eval I Current Vital Signs Temperature: 99.5 F Pulse Rate: 118 Blood Pressure: 134/71 Respiratory Rate: 16 Pulse Ox: 97 Assessment Airway patent: Yes Spontaneous unlabored respirations: Yes nausea: No Vomiting: No Anesthesia Complication: No Fluid Hydration Crystalloid volume administer (ml): 500 Total IV fluid infused: 500 Progress Note Anesthesia document: Postop Eval 1 completed: Yes
--- NOTE | 2025-04-06 11:04 | PCM.POSTANE2 ---
Anesthesia Postop Eval I Sum Postop Eval Completion status Anesthesia document: Postop Eval 1 completed: Yes Anesthesia Postop Eval I Summary Anesthesia Postop Eval I Summary: Anesthesia Postop Eval I: Assessment Summary Airway patent Yes 04/06/25 11:03 Spontaneous unlabored Yes 04/06/25 11:03 respirations Mental status nausea No 04/06/25 11:03 Vomiting No 04/06/25 11:03 Anesthesia Postop Eval I: Fluid Summary Crystalloid volume administer 500 04/06/25 11:03 (ml) Colloids volume administered ( ml) Blood Product volume administered (ml) Total IV fluid infused 500 04/06/25 11:03 Anesthesia Postop Eval I: Summary Notes Anesthesia Complication No 04/06/25 11:03 Anesthesia Complication Comment: Post-operative progress note Anesthesia: Postop Eval II Evaluation Mental status: Awake Pain Level: 0 nausea: No Vomiting: No
--- NOTE | 2025-04-06 11:09 | DCINST_ITS ---
Discharge Instructions Diet Discharge Diet: Light diet - advance as tolerated Activity Discharge Activity: May Not Drive (while taking narcotic pain medications.) May shower in (days): 1 Lifting Restrictions: no lifting >20 lbs x 2 wks, no strenuous exercise for 4 wks Dressing / Incision Call your doctor if your incision/area has: Continuous Slow Oozing, Sudden Increased Bleeding, Increased Pain/ Swelling, Increased Redness, Foul Smelling Discharge and Swelling at the incision site Call your doctor if you observe: Fever of 101 or Higher Remove Dressing in: 2 days Cleanse incision/area with: Soap & Water Additional Dressing/Incision Instructions:: Steri-Strips will fall off in 7 to 10 days, if they do not fall off okay to remove after 10 days. Follow Up Care Please Follow Up With: Adriane Lilly MD When: Call the office for a follow-up appointment 2 weeks; after 5 PM and on the weekends call [phone] with any concerns. Test Results: Test results from this visit will be discussed in further detail at your follow- up appointment, if applicable. Discharge Plan Admission Admit Date/Time: 04/06/25 09:09 Attending Provider: Adriane Lilly Primary Care Provider: YUAN RIZO Consulting Providers: Adriane Lilly Discharge Orders/Prescriptions Prescriptions: New oxycodone 5 mg capsule 5 mg PO Q6H PRN (Reason: pain) 3 Days Qty: 10 0RF Continued Mynatal Plus 65 mg iron- 1 mg tablet 1 tab PO DAILY labetalol 200 mg Tablet 300 mg PO TID Qty: 90 0RF ibuprofen 600 mg Tablet 600 mg PO Q6H Qty: 60 0RF nifedipine 30 mg Tablet Extended Release 24hr 60 mg PO DAILY Referrals / Follow Up: YUAN RIZO MD [Primary Care Provider] - Disposition Disposition (needs filled in before D/C Order can be placed): Home, Self Care
== END 2025-04-06 13:15 | disposition home or self-care (01) ==
LOC: WPOUT 09:29 → WP 09:29
PROVIDERS: Obstetrics & Gynecology; Admitting Provider Surgery; PCP Family Medicine; Visit Provider Surgery
PROC: 0DTJ4ZZ Resection of Appendix, Percutaneous Endoscopic Approach (ICD-10-PCS; CPT 44970; principal; 2025-04-06 10:00)
DX: O99.63 Diseases of the digestive system complicating the puerperium (principal); I10 Essential (primary) hypertension; K35.33 Acute appendicitis with perforation, localized peritonitis, and gangrene, with abscess
CPT/HCPCS: 44970; 00840; 36415; 74177; 80053; 81001; 85025; 88304; 96372; 99221; Q9967; A4216; G0378; J2405